=== PATIENT | male | born 1945 | race Caucasian/White ===

== ENCOUNTER 2016-06-03 11:25 | Emergency (ER) | payer OTHER, MEDICARE ==
[2016-06-03 11:36] VITALS: BP 125/78; PULSE 82; TEMP 97.8; BMI 23.6
--- NOTE | 2016-06-03 13:20 | PDOC ---
History of Present Illness - General Chief Complaint: Cold Symptoms Stated Complaint: COUGH/CONGESTION Time Seen by Provider: 06/03/16 11:31 History Source: Patient Exam Limitations: No Limitations - History of Present Illness Initial Comments: 06/03/16 13:12 CHIEF COMPLAINT: Cough for 2 weeks HISTORY OF PRESENT ILLNESS: 70-year-old man with no significant past medical history presents with cough for 2 weeks. He started with nasal congestion and sneezing and URI symptoms. He then developed some cough with some green sputum. He saw his primary care physician and was given an unknown antibiotic for 3 days. He completed the antibiotic but he continues to have cough and chest congestion. This morning he heard rattling in his chest so he decided to come to the emergency room. He denies fever or chills. He continues to have green sputum production with cough. He denies chest pain or pleuritic chest pain. He denies shortness of breath. Once he coughed, the chest congestion improved. He quit smoking over 40 years ago. REVIEW OF SYSTEMS: No fever or chills No chest pain No shortness of breath Positive cough with green sputum Past History - Past Medical History Allergies/Adverse Reactions: Allergies Allergy/AdvReac Type Severity Reaction Status Date / Time No Known Allergies Allergy Verified 06/03/16 11:26 Home Medications: Ambulatory Orders Aspirin [ASA -] 81 mg PO DAILY 06/03/16 Cholecalciferol (Vitamin D3) [Vitamin D3] 0 unit PO DAILY 06/03/16 Fluticasone Propionate [Flovent Diskus] 100 mcg IH BID PRN #1 disk.w.dev Glucosamine HCl 0 mg PO ASDIR 06/03/16 Guaifenesin [Mucinex] 0 mg PO DAILY 06/03/16 Other medical history: PT DENIES - Psycho/Social/Smoking Cessation Hx Anxiety: No Suicidal Ideation: No Smoking History: Never smoked Information on smoking cessation initiated: No Hx Alcohol Use: No Drug/Substance Use Hx: No Substance Use Type: None *Physical Exam - Vital Signs Last Vital Signs Temp Pulse Resp BP Pulse Ox 97.8 F 82 18 125/78 99 06/03/16 11:28 06/03/16 11:28 06/03/16 11:28 06/03/16 11:28 06/03/16 11:28 - Physical Exam Comments: 06/03/16 13:14 GENERAL: The patient is awake, alert, and fully oriented, in no acute distress. Breathing is comfortable, unlabored. HEAD: Normal with no signs of trauma. EYES: Pupils equal, round and reactive to light, extraocular movements intact, sclera anicteric, conjunctiva clear. ENT: Ears normal, nares patent, oropharynx clear without exudates. Moist mucous membranes. NECK: Normal range of motion, supple without lymphadenopathy, JVD, or masses. LUNGS: Breath sounds equal, clear to auscultation bilaterally. No wheezes, and no crackles. No splinting on inspiration. HEART: Regular rate and rhythm, normal S1 and S2 without murmur, rub or gallop. ABDOMEN: Soft, nontender, normoactive bowel sounds. No guarding, no rebound. No masses. EXTREMITIES: Normal range of motion, no edema. No clubbing or cyanosis. No cords, erythema, or tenderness. NEUROLOGICAL: Cranial nerves II through XII grossly intact. Normal speech, normal gait. PSYCH: Normal mood, normal affect. SKIN: Warm, Dry, normal turgor, no rashes or lesions noted. 06/03/16 13:14 ED Treatment Course - RADIOLOGY Radiology Studies Ordered: Category Date Time Status CHEST PA & LAT [RAD] Stat Radiology 06/03/16 11:31 Completed SPINE-THORACIC [RAD] Stat Radiology 06/03/16 12:13 Completed Medical Decision Making - Medical Decision Making 06/03/16 13:14 Chest x-ray PA and lateral was performed. There is some calcification of the anterior spinous ligament and some osteophyte formation. Radiology requested oblique views of the thoracic spine to confirm that there is nothing in the lungs. Oblique views of the thoracic spine were performed and confirmed that the calcifications seen are related to osteophytes. Patient with bronchitis and persistent cough. Likely reactive airways disease post upper respiratory infection. We'll have Flovent inhaler prescribed. No need for antibiotics. *DC/Admit/Observation/Transfer Diagnosis at time of Disposition: Bronchitis - Discharge Dispostion Disposition: HOME Condition at time of disposition: Good Admit: No - Prescriptions Prescriptions: Fluticasone Propionate [Flovent Diskus] 100 mcg IH BID PRN #1 disk.w.dev PRN Reason: Cough - Patient Instructions Printed Discharge Instructions: DI for Acute Bronchitis Additional Instructions: You were evaluated today for a persistent cough. The cough is due to bronchitis which started with an infection, but now is due to inflamed and irritated airways. You have already completed an antibiotic, so at this point we will try a Flovent inhaler to reduce the inflammation of your bronchial tubes and to help resolve the cough. The Flovent prescription has been sent to the [facility] pharmacy in our sleep. Use the inhaler twice daily. Instructions are included with the inhaler. Follow up with your primary care physician and bring the copy of your x-ray reports to your follow-up appointment. Return to the emergency department for any severe or progressive symptoms.
== END 2016-06-03 13:30 | disposition home or self-care (01) ==
LOC: FER 11:25
DX: J40 Bronchitis, not specified as acute or chronic (principal); Z87.891 Personal history of nicotine dependence; Z79.82 Long term (current) use of aspirin
CPT/HCPCS: 71020-TC; 72070-TC; 99281-25

== ENCOUNTER 2016-09-15 08:15 | Emergency (ER) | payer OTHER, MEDICARE ==
--- NOTE | 2016-09-15 08:18 | PDOC ---
Attending Attestation - Resident Resident Name: WestbrookRonn - ED Attending Attestation I have performed the following: I have examined & evaluated the patient, The case was reviewed & discussed with the resident, I agree w/resident's findings & plan, Exceptions are as noted - HPI HPI: 09/15/16 08:45 The patient is a 71-year-old male, immunocompetent, who presents to the emergency department with a tick bite to the right thigh. He suspects that the tick has been embedded for the past 48-72 hours. He denies fever, headache, myalgia. There is a very small area of redness that is nonpainful, nontender and not warm, surrounding the tick bite. - Physicial Exam PE: 09/15/16 08:45 He is well-appearing and in no acute distress Vitals noted A tick is embedded in the right medial thigh. There is a 1/2 cm area of surrounding minimal erythema, without increased warmth, tenderness. The site was prepped with alcohol and Betadine. Using fine tweezers, the tick was removed after slow upward pressure. There is no remaining foreign body apparent. - Medical Decision Making 09/15/16 08:46 He is well-appearing and in no acute distress There is no current evidence of early localized or early disseminated Lyme The surrounding erythema seems inflammatory rather than infectious We discussed the risks and benefits of prophylaxis using doxycycline 200 mg Because he feels that it is possible that the tick has been embedded in him for 72 hours or longer, we elected for prophylaxis We discussed the risks and benefits of treating possible early cellulitis At this point, I do not feel that he has cellulitis, and I feel that the risks of treatment outweigh the benefits. He agrees Clinical impression: Tick bite I discussed the physical exam findings, ancillary test results and final diagnoses with the patient. I answered all of the patient's questions. The patient was satisfied with the care received and felt comfortable with the discharge plan and treatment plan. The patient will call their primary care physician within 24 hours to arrange follow-up and will return to the Emergency Department with any new, persistent or worsening symptoms. Discharge Disposition - Diagnosis Tick bite - Discharge Dispostion Disposition: HOME Condition at time of disposition: Improved - Patient Instructions Printed Discharge Instructions: DI for Insect Bites and Stings, DI for Lyme Disease Additional Instructions: Return to the emergency department immediately with ANY new, persistent or worsening symptoms. You MUST call and follow up with your doctor tomorrow. Please make sure your doctor reviews the results of your emergency department evaluation.
[2016-09-15] MEDS ORDERED: DOXYCYCLINE HYCLATE 100 MG CAPSULE PO ONE ×2 (08:50→08:52)
--- NOTE | 2016-09-15 08:50 | PDOC ---
History of Present Illness - General Chief Complaint: Bite Stated Complaint: RT UPPER LEG BUG BITE Time Seen by Provider: 09/15/16 08:16 History Source: Patient Exam Limitations: No Limitations - History of Present Illness Initial Comments: 71 M y/o presents to [facility] for tick bite. Pt had tick bite with tick in place in R anterior thigh. Pt was in [place] 3 days ago for house shopping and denies any hiking or contact with plants. He noticed tick today with some redness around area of tick but no skin pain but c/o some irritation. He has an indoor cat at home and has no other pet contact. He denies N/V/F/C, palpitations , ESPITIA, light-headedness, dizziness, pain in joints. Past History - Past Medical History Allergies/Adverse Reactions: Allergies Allergy/AdvReac Type Severity Reaction Status Date / Time No Known Allergies Allergy Verified 09/15/16 08:25 Home Medications: Ambulatory Orders Aspirin [ASA -] 81 mg PO DAILY 06/03/16 Metronidazole [Metrogel] 55 gm TP DAILY 09/15/16 Omeprazole 20 mg PO DAILY 09/15/16 - Psycho/Social/Smoking Cessation Hx Anxiety: No Suicidal Ideation: No Smoking History: Never smoked Hx Alcohol Use: No Drug/Substance Use Hx: No Substance Use Type: None Review of Systems - Review of Systems Able to Perform ROS?: Yes Comments:: CONSTITUTIONAL: Absent: fever, no chills, no fatigue CARDIOVASCULAR: Absent: chest pain, no palpitations RESPIRATORY: Absent: cough, no SOB GI: Absent: abdominal pain, no nausea, no vomiting, MUSCULOSKELETAL: Absent: back pain, no arthralgia, no myalgia SKIN: +tick bite with tick in place with redness around site of bite NEURO: Absent: headache *Physical Exam - Physical Exam Comments: GENERAL: Well-appearing, well-nourished. No apparent distress. HEENT: Normocephalic, atraumatic. No tick bites, erythema on scalp. CARDIOVASCULAR: Normal S1, S2. Regular rate and rhythm. PULMONARY: Clear to auscultation bilaterally. ABDOMEN: Soft, non-distended, non-tender. EXTREMITIES: Normal ROM in all four extremities. No gross deformities. SKIN: +R anterior thigh tick embedded in skin with surrounding erythema approximately 1.5 inches in diameter. Skin in surrounding area is not warm to touch. NEUROLOGICAL: No focal neurological deficits. Medical Decision Making - Medical Decision Making 09/15/16 8:42 Tick removed with tweezers from R anterior thigh. Whole tick removed with no remaining tick fragments seen in skin. Tick appears to be more 09/15/16 8:51 Doxycycline 200 mg PO once given to cover for lyme 09/15/16 09:03 Pt instructed on how to avoid tick bites including wearing socks, hats, pants when outdoors and showering after coming out from areas that have plants and to check for tick bites. Pt also instructed to come back if he develops worsening symptoms or if he notices signs of skin infections such as increasing redness in area, pain in area, and fevers or chills. At this time redness in area of tick bite has decreased after tick removal. Pt to be discharged at this time and to f/u with PCP. *DC/Admit/Observation/Transfer Diagnosis at time of Disposition: Tick bite - Patient Instructions Printed Discharge Instructions: DI for Insect Bites and Stings, DI for Lyme Disease Additional Instructions: Return to the emergency department immediately with ANY new, persistent or worsening symptoms. You MUST call and follow up with your doctor tomorrow. Please make sure your doctor reviews the results of your emergency department evaluation.
[2016-09-15 08:54] VITALS: BP 143/78; PULSE 66; TEMP 98.5; BMI 23.6
== END 2016-09-15 09:07 | disposition home or self-care (01) ==
LOC: FER 08:15
DX: S70.361A Insect bite (nonvenomous), right thigh, initial encounter (principal); Z79.82 Long term (current) use of aspirin; W57.XXXA Bitten or stung by nonvenomous insect and other nonvenomous arthropods, initial encounter; Y93.89 Activity, other specified; Y92.89 Other specified places as the place of occurrence of the external cause
CPT/HCPCS: 99281-25